=== PATIENT | female | born 1985 | race Caucasian/White ===

== ENCOUNTER 2016-09-03 13:36 | Emergency (ER) | payer OTHER ==
[2016-09-03 13:52] VITALS: BP 120/76; PULSE 79; TEMP 98.1; BMI 20.3
--- NOTE | 2016-09-03 13:52 | PDOC ---
Rapid Medical Evaluation Time Seen by Provider: 09/03/16 13:43 Medical Evaluation: Allergies Allergy/AdvReac Type Severity Reaction Status Date / Time No Known Allergies Allergy Verified 12/18/15 11:56 09/03/16 13:45 I have performed a brief in-person evaluation of this patient. The patient presents with a chief complaint of: left sided chest pain radiating to left arm x 1 month, denies neck pain. Pertinent physical exam findings: normal ekg, no reproducible chest pain, + marijuana, no travel, no cough, fever, I have ordered the following: ekg, cardiac profile, cbc, comp, hcg urine The patient will proceed to the ED for further evaluation.
[2016-09-03 14:21] LABS: BASOPHIL 0.3 % (0-2.0); EOSINOPHIL 0.2 % (0-4.5); MCH 30.7 pg (25.7-33.7); MCHC 34.9 g/dl (32.0-36.0); MEAN CELL VOLUME 87.9 fl (80-96); MEAN PLT VOLUME 7.4 fl (7.5-11.1); NEUTROPHILS 85.1 % (42.8-82.8); PLATELET COUNT 249 K/MM3 (134-434); RDW 12.9 % (11.6-15.6); WHITE BLOOD COUNT 10.7 K/mm3 (4.0-10.0)
--- NOTE | 2016-09-03 14:23 | PDOC ---
History of Present Illness - General History Source: Patient Exam Limitations: No Limitations - History of Present Illness Initial Comments: 09/03/16 15:05 The patient 31 year old female, with a significant past medical history of anxiety, who presents to the emergency department complaining of chest pain for approximately 2 months. The patient reports she has been evaluated in the ED and by a Ctrs(Dr. Long) in the past for a similar chest pain, however, her chest pain has been increasingly worsening. The patient reports her chest pain is localized to her left side and radiates down her left arm. The patient reports associated nausea, but denies vomiting, diarrhea, or constipation. The patient reports she there are days where she has been unable to sleep due to the chest pain. The patient denies any shortness of breath, diaphoresis, or palpitations. She reports intermittent an intermittent headache , but denies fever, chills, cough, dizziness, or lightheadedness. The patient reports she is constantly stressed, because she works two jobs throughout the day. However, she reports she has enough time to sleep at least 9 hours per day. The patient denies any recent travel or sick contacts. Allergies: None reported. Past Surgical History: None reported. Social History: Non-smoker. ETOH and marijuana use. PCP: Dr. Moise <Augie Llamas - Last Filed: 09/03/16 16:20> <Melly Salgado - Last Filed: 09/04/16 08:57> - General Chief Complaint: Chest Pain Stated Complaint: CHEST PAIN,LT SIDE PAIN Time Seen by Provider: 09/03/16 13:43 Past History <Augie Llamas - Last Filed: 09/03/16 16:20> - Past Medical History Asthma: No Diabetes: No Suicide Attempt (Hx): No - Immunization History Immunization Up to Date: Yes - Psycho/Social/Smoking Cessation Hx Anxiety: Yes Suicidal Ideation: No Smoking Status: No Smoking History: Never smoked Have you smoked in the past 12 months: No Number of Cigarettes Smoked Daily: 0 Hx Alcohol Use: No Drug/Substance Use Hx: Yes ([facility]) Substance Use Type: Alcohol <Melly Salgado - Last Filed: 09/04/16 08:57> - Past Medical History Allergies/Adverse Reactions: Allergies Allergy/AdvReac Type Severity Reaction Status Date / Time No Known Allergies Allergy Verified 09/03/16 13:48 Home Medications: Ambulatory Orders NK [No Known Home Medication] 12/18/15 Review of Systems - Review of Systems Able to Perform ROS?: Yes Comments:: 09/03/16 15:07 GENERAL/CONSTITUTIONAL: No fever or chills. No weakness. HEAD, EYES, EARS, NOSE AND THROAT: No change in vision. No ear pain or discharge. No sore throat. CARDIOVASCULAR: +Chest pain. No shortness of breath. RESPIRATORY: No cough, wheezing, or hemoptysis. GASTROINTESTINAL: +Nausea. No vomiting, diarrhea or constipation. GENITOURINARY: No dysuria, frequency, or change in urination. MUSCULOSKELETAL: No joint or muscle swelling or pain. No neck or back pain. SKIN: No rash NEUROLOGIC: No headache, vertigo, loss of consciousness, or change in strength/ sensation. ENDOCRINE: No increased thirst. No abnormal weight change. HEMATOLOGIC/LYMPHATIC: No anemia, easy bleeding, or history of blood clots. ALLERGIC/IMMUNOLOGIC: No hives or skin allergy. <Augie Llamas - Last Filed: 09/03/16 16:20> *Physical Exam - Vital Signs Last Vital Signs Temp Pulse Resp BP Pulse Ox 98.1 F 79 18 120/76 100 09/03/16 13:49 09/03/16 13:49 09/03/16 13:49 09/03/16 13:49 09/03/16 14:10 - Physical Exam Comments: 09/03/16 15:07 GENERAL: Awake, alert, and fully oriented, in no acute distress HEAD: No signs of trauma EYES: PERRLA, EOMI, sclera anicteric, conjunctiva clear ENT: Auricles normal inspection, hearing grossly normal, nares patent, oropharynx clear without exudates. Moist mucosa NECK: Normal ROM, supple, no lymphadenopathy, JVD, or masses LUNGS: Breath sounds equal, clear to auscultation bilaterally. No wheezes, and no crackles HEART: Regular rate and rhythm, normal S1 and S2, no murmurs, rubs or gallops ABDOMEN: Soft, nontender, normoactive bowel sounds. No guarding, no rebound. No masses EXTREMITIES: Normal range of motion, no edema. No clubbing or cyanosis. No cords, erythema, or tenderness NEUROLOGICAL: Cranial nerves II through XII grossly intact. Normal speech, normal gait SKIN: Warm, Dry, normal turgor, no rashes or lesions noted. <Augie Llamas - Last Filed: 09/03/16 16:20> - Vital Signs Last Vital Signs Temp Pulse Resp BP Pulse Ox 98.1 F 79 18 120/76 100 09/03/16 13:49 09/03/16 13:49 09/03/16 13:49 09/03/16 13:49 09/03/16 14:10 <Melly Salgado - Last Filed: 09/04/16 08:57> ED Treatment Course - LABORATORY CBC & Chemistry Diagram: 09/03/16 14:10 09/03/16 14:10 - ADDITIONAL ORDERS Additional order review: Laboratory Results 09/03/16 14:10 Urine HCG, Qual Negative 09/03/16 14:10 RBC 4.47 MCV 87.9 MCHC 34.9 RDW 12.9 MPV 7.4 L Neutrophils % 85.1 H D Lymphocytes % 11.2 D Monocytes % 3.2 L Eosinophils % 0.2 Basophils % 0.3 - RADIOLOGY Radiograph Interpretation: 09/03/16 16:21 EXAM: CXR INTERPRETED BY: Dr. Munoz REVIEWED BY: Dr. Salgado IMPRESSION: No acute pathology. No significant change since 06/09/2014. <Augie Llamas - Last Filed: 09/03/16 16:20> - LABORATORY CBC & Chemistry Diagram: 09/03/16 14:10 09/03/16 14:10 <Melly Salgado - Last Filed: 09/04/16 08:57> Medical Decision Making - Medical Decision Making Lengthy discussion with patient at bedside- she has had multiple episodes of the chest pain over the past two years. She states that she is concerned that she is having a heart attack, and that she has seen on TV that women have atypical presentations (nausea, arm pain). She is low risk by clinical eval, and her EKG and labs are wnl. She has seen a [facility] in the past, but was not pleased with the evaluation- felt it was incomplete. I discussed that there are many things that can cause chest pain, and that an MN is not the only possibility, but must be considered in light of pretest probability. She has seen a GI in the past, had endoscopy and colonoscopy, which were reportedly normal. She was also displeased when her primary recommended that she see a psychiatrist. I asked her about stress, and she stated that she has high stress level, working multiple jobs. However, she does get full nights of sleep. I encouraged her to f/u with cardio, again, because there are other causes for chest pain. I supplied her with a list of providers, as she requested to see a different one. <Melly Salgado - Last Filed: 09/04/16 08:57> *DC/Admit/Observation/Transfer - Attestations Scribe Attestion: 09/03/16 15:07 Documentation prepared by Augie Llamas, acting as biomedical engineering supervisor for Melly Salgado MD. <Augie Llamas - Last Filed: 09/03/16 16:20> - Discharge Dispostion Admit: No <Melly Salgado - Last Filed: 09/04/16 08:57> Diagnosis at time of Disposition: Chest pain Qualifiers: Chest pain type: unspecified Qualified Code(s): R07.9 - Chest pain, unspecified - Discharge Dispostion Disposition: HOME Condition at time of disposition: Stable - Referrals Referrals: Umu Moise MD [Primary Care Provider] - - Patient Instructions Printed Discharge Instructions: DI for Atypical Chest Pain
[2016-09-03 14:49] LABS: ALBUMIN 4.2 g/dl (3.4-5.0); ANION GAP 8 (8-16); BILIRUBIN,TOTAL 0.6 mg/dL (0.2-1.0); CALCIUM 9.3 mg/dL (8.5-10.1); CO2 28 mmol/L (21-32); CREATININE 0.7 mg/dL (0.55-1.02); GLUCOSE,RANDOM 84 mg/dL (74-106); SGOT/AST 10 U/L (15-37); SGPT/ALT 14 U/L (12-78); TOT PROT 7.1 g/dl (6.4-8.2)
[2016-09-03 14:52] LABS: ALK PHOS 63 U/L (45-117); TROPONIN I < 0.02 ng/ml (0.00-0.05)
--- NOTE | 2016-09-06 11:24 | EKG ---
Test Reason : Blood Pressure : / mmHG Vent. Rate : 068 BPM Atrial Rate : 068 BPM P-R Int : 142 ms QRS Dur : 076 ms QT Int : 402 ms P-R-T Axes : 046 053 020 degrees QTc Int : 427 ms NORMAL SINUS RHYTHM WITH SINUS ARRHYTHMIA SEPTAL INFARCT , AGE UNDETERMINED ABNORMAL ECG WHEN COMPARED WITH ECG OF 09-JUN-2014 14:58, ABERRANT CONDUCTION IS NO LONGER PRESENT Confirmed by INDIRA COON MD ([id number]) on 09/06/2016 11:23:59 AM Referred By: Confirmed By:INDIRA COON MD
== END 2016-09-03 16:26 | disposition home or self-care (01) ==
LOC: JER 13:36
DX: R07.9 Chest pain, unspecified (principal)
CPT/HCPCS: 36415; 71020-TC; 80053; 82550; 84484; 84703; 85025; 93005; 93010; 99284-25

== ENCOUNTER 2017-03-18 12:49 | Emergency (ER) | payer OTHER ==
[2017-03-18 12:57] VITALS: BP 109/66; PULSE 79; TEMP 98.8; BMI 19.3
--- NOTE | 2017-03-18 13:53 | PDOC ---
History of Present Illness - General Chief Complaint: Head/Neck problem Stated Complaint: MIGRAINES, STIFF NECK Time Seen by Provider: 03/18/17 13:24 History Source: Patient Exam Limitations: No Limitations - History of Present Illness Initial Comments: 03/18/17 13:50 31 yr female with c/o stiff neck and headache for one week after sleeping on poor mattress. Pt states the pain is worse when waking up comes and goes. no fever or chills. Pt c/o headache that is not going away with tylenol. Pt denies nvd. Severity: mild Past History - Past Medical History Allergies/Adverse Reactions: Allergies Allergy/AdvReac Type Severity Reaction Status Date / Time No Known Allergies Allergy Verified 03/18/17 12:54 Home Medications: Ambulatory Orders Diazepam [Valium] 5 mg PO Q8H PRN #12 tablet MDD 15mg 03/18/17 Naproxen [Naprosyn -] 500 mg PO BID PRN #14 tablet 03/18/17 Asthma: No Diabetes: No Suicide Attempt (Hx): No Other medical history: DENIES. - Immunization History Immunization Up to Date: Yes - Psycho/Social/Smoking Cessation Hx Anxiety: Yes Suicidal Ideation: No Smoking Status: No Smoking History: Never smoked Have you smoked in the past 12 months: No Number of Cigarettes Smoked Daily: 0 Hx Alcohol Use: No Drug/Substance Use Hx: Yes ([facility]) Substance Use Type: Alcohol Review of Systems - Review of Systems Able to Perform ROS?: Yes Is the patient limited Tuvaluan proficient: No Constitutional: No: Symptoms Reported HEENTM: No: Symptoms Reported Respiratory: No: Symptoms reported Cardiac (ROS): No: Symptoms Reported ABD/GI: No: Symptoms Reported : No: Symptoms Reported Musculoskeletal: Yes: See HPI, Neck Pain Neurological: Yes: Symptoms reported, Headache *Physical Exam - Vital Signs Last Vital Signs Temp Pulse Resp BP Pulse Ox 98.8 F 79 19 109/66 99 03/18/17 12:54 03/18/17 12:54 03/18/17 12:54 03/18/17 12:54 03/18/17 12:54 - Physical Exam General Appearance: Yes: Nourished, Appropriately Dressed HEENT: positive: EOMI, KIM Neck: positive: Supple, Decreased range of motion, Tender lateral (right side ) . negative: Tender, Tender midline Respiratory/Chest: positive: Lungs Clear, Normal Breath Sounds Cardiovascular: positive: Regular Rhythm, Regular Rate Gastrointestinal/Abdominal: positive: Normal Bowel Sounds, Soft Musculoskeletal: positive: Normal Inspection Extremity: positive: Normal Capillary Refill, Normal Inspection, Normal Range of Motion Integumentary: positive: Normal Color, Dry, Warm Neurologic: positive: Fully Oriented, Alert, Normal Mood/Affect, Normal Response , Motor Strength 5/5, Finger to Nose (intact). negative: Numbness, Sensory Deficit Medical Decision Making - Medical Decision Making 03/18/17 13:52 cc: headache, right side neck pain and stiffness for 4 days worse after sleeping. Pt admits to sleeping poorly, tossing and turning. pt denies fever or chills no trauma. will r/o toradol and valium head ct as pt states her headaches are more frequent and severe on the right side. no photphobia *DC/Admit/Observation/Transfer Diagnosis at time of Disposition: Neck muscle strain Qualifiers: Encounter type: initial encounter Qualified Code(s): S16.1XXA - Strain of muscle, fascia and tendon at neck level, initial encounter Headache Qualifiers: Headache type: unspecified Headache chronicity pattern: unspecified pattern Intractability: not intractable Qualified Code(s): R51 - Headache - Discharge Dispostion Disposition: HOME Condition at time of disposition: Improved - Prescriptions Prescriptions: Naproxen [Naprosyn -] 500 mg PO BID PRN #14 tablet PRN Reason: Pain Diazepam [Valium] 5 mg PO Q8H PRN #12 tablet MDD 15mg PRN Reason: Muscle Spasms - Referrals Referrals: Umu Moise MD [Primary Care Provider] - Snethil Varner MD [Staff Physician] - - Patient Instructions Additional Instructions: please follow with for follow up please take valium as needed for muscle spasm take naprosyn for pain with the valium as needed for the next 3-4 days follow with the orthopedist if symptoms worsen warm compresses, heating pad to the right side of your neck every 3-4hrs for 20 minutes
[2017-03-18] MEDS ORDERED: KETOROLAC TROMETHAMINE 60 MG/2 ML VIAL IM ONE (14:09)
[2017-03-18] MEDS ORDERED: KETOROLAC TROMETHAMINE 60 MG/2 ML VIAL ONE (14:13)
== END 2017-03-18 15:56 | disposition home or self-care (01) ==
LOC: JERFT 12:49
PROC: 3E0233Z Introduction of Anti-inflammatory into Muscle, Percutaneous Approach (ICD-10-PCS; principal; 2017-03-18)
DX: S16.1XXA Strain of muscle, fascia and tendon at neck level, initial encounter (principal); X50.1XXA Overexertion from prolonged static or awkward postures, initial encounter; Y93.89 Activity, other specified; Y92.032 Bedroom in apartment as the place of occurrence of the external cause
CPT/HCPCS: 70450-TC; 84703; 96372; 99281-25

== ENCOUNTER 2018-07-15 12:21 | Emergency (ER) | payer OTHER ==
[2018-07-15 12:25] VITALS: BP 115/70; PULSE 68; TEMP 98.5; BMI 22.1
[2018-07-15] MEDS ORDERED: KETOROLAC TROMETHAMINE 30 MG/1 ML VIAL IM ONE (14:10)
[2018-07-15] MEDS ORDERED: KETOROLAC TROMETHAMINE 30 MG/1 ML VIAL ONE (14:12)
--- NOTE | 2018-07-15 14:13 | PDOC ---
History of Present Illness - General Chief Complaint: Pain, Acute Stated Complaint: LT LEG PAIN Time Seen by Provider: 07/15/18 13:00 History Source: Patient Exam Limitations: No Limitations - History of Present Illness Initial Comments: 07/15/18 14:13 Patient reports left lower leg pain x 2 years, with no medical history, had one . Reports no past or recent injuries. STates no numbness or tingling, but states pain worse when she is standing for long periods of time. Seen last 2 years ago, had " vein test" done with no results. Requesting pain relief today Severity: Yes: mild Lower Extremity Pain Location: left: leg Method of Injury: Yes: unknown Modifying Factors: improves with: immobilization Lower Ext. Injury Location - Specific Injury Location Hips: bilateral hip: no evidence of injury Legs: left: pain Knees: bilateral no evidence of injury Ankle: bilateral no evidence of injury Foot: bilateral foot no evidence of injury Extremity Pain Location - Extremity Pain Location Extremity Pain Locations: left: leg Past History - Past Medical History Allergies/Adverse Reactions: Allergies Allergy/AdvReac Type Severity Reaction Status Date / Time No Known Allergies Allergy Verified 07/15/18 12:22 Home Medications: Ambulatory Orders Naproxen 500 mg PO BID #20 tablet 07/15/18 Asthma: No COPD: No Diabetes: No - Immunization History Immunization Up to Date: Yes - Suicide/Smoking/Psychosocial Hx Smoking Status: No Smoking History: Never smoked Have you smoked in the past 12 months: No Number of Cigarettes Smoked Daily: 0 Information on smoking cessation initiated: No Hx Alcohol Use: No Drug/Substance Use Hx: No Substance Use Type: Alcohol Review of Systems - Review of Systems Able to Perform ROS?: Yes Constitutional: No: Chills, Fever HEENTM: No: Throat Pain, Throat Swelling, Difficulty Swallowing Respiratory: No: Cough, Orthopnea, Wheezing Cardiac (ROS): No: Chest Pain, Lightheadedness ABD/GI: No: Poor Appetite, Indigestion Musculoskeletal: Yes: Joint Pain Integumentary: No: Bruising, Erythema Neurological: No: Numbness, Tremors Endocrine: No: Excessive Sweating, Increased Hunger Hematologic/Lymphatic: No: Anemia *Physical Exam - Vital Signs Last Vital Signs Temp Pulse Resp BP Pulse Ox 98.5 F 68 16 115/70 98 07/15/18 12:23 07/15/18 12:23 07/15/18 12:23 07/15/18 12:23 07/15/18 12:23 - Physical Exam General Appearance: Yes: Nourished, Appropriately Dressed HEENT: positive: KIM Neck: negative: Carotid bruit, Lymphadenopathy (R), Lymphadenopathy (L) Respiratory/Chest: positive: Lungs Clear. negative: Rapid RR, Paradoxal Breathing Cardiovascular: positive: Regular Rate Extremity: positive: Normal Capillary Refill, Normal Range of Motion. negative : Swelling, Inflammation Neurologic: positive: Fully Oriented, Alert, Normal Response, Motor Strength 5/5 Moderate Sedation - Procedure Monitoring Vital Signs: Procedure Monitoring Vital Signs Temperature 98.5 F 07/15/18 12:23 Pulse Rate 68 07/15/18 12:23 Respiratory Rate 16 07/15/18 12:23 Blood Pressure 115/70 07/15/18 12:23 O2 Sat by Pulse Oximetry (%) 98 07/15/18 12:23 ED Treatment Course - ADDITIONAL ORDERS Additional order review: Laboratory Results 07/15/18 13:25 Urine HCG, Qual Negative - RADIOLOGY Radiology Studies Ordered: Category Date Time Status LEG TIB/FIB-LEFT [RAD] Stat Radiology 07/15/18 13:17 Ordered Medical Decision Making - Medical Decision Making 07/15/18 14:13 33 year old female with history of x 1, no medical history presents with left lower leg pain x 2 years. States pain worse at times. Denies numbness or tingling. Taking acetaminophen for pain relief Plan xray analgesia 07/15/18 14:16 07/15/18 14:56 left leg negative for fracture, dislocation or inflammation *DC/Admit/Observation/Transfer Diagnosis at time of Disposition: Leg pain, left - Discharge Dispostion Disposition: HOME Condition at time of disposition: Good Decision to Admit order: No - Prescriptions Prescriptions: Naproxen 500 mg PO BID #20 tablet - Referrals - Patient Instructions Printed Discharge Instructions: DI for Leg Pain Additional Instructions: Please call orthopedic for follow up or follow up with primary physician for further testing Please return for swelling, redness or worsening of left leg pain Also return for shortness of breath - Post Discharge Activity Forms/Work/School Notes: Back to Work
== END 2018-07-15 15:01 | disposition home or self-care (01) ==
LOC: JERFT 12:21
PROC: 3E0233Z Introduction of Anti-inflammatory into Muscle, Percutaneous Approach (ICD-10-PCS; principal; 2018-07-15)
DX: M79.662 Pain in left lower leg (principal)
CPT/HCPCS: 73590-TC-LT-FY; 84703; 96372; 99281-25

== ENCOUNTER 2021-03-04 13:35 | Emergency (ER) | payer OTHER ==
[2021-03-04 13:57] VITALS: BP 122/75; PULSE 65; TEMP 98.7; BMI 23.8
[2021-03-04] MEDS ORDERED: METOCLOPRAMIDE HCL INJECTION 10 MG/2 ML VIAL IVPB ONE (15:26)
[2021-03-04] MEDS ORDERED: KETOROLAC TROMETHAMINE 30 MG/1 ML VIAL IVPUSH ONE (15:26)
[2021-03-04] MEDS ORDERED: KETOROLAC TROMETHAMINE 30 MG/1 ML VIAL ONE (15:59)
[2021-03-04] MEDS ORDERED: METOCLOPRAMIDE HCL INJECTION 10 MG/2 ML VIAL ONE (15:59)
== END 2021-03-04 18:20 | disposition home or self-care (01) ==
LOC: JER 13:35
PROC: 3E0333Z Introduction of Anti-inflammatory into Peripheral Vein, Percutaneous Approach (ICD-10-PCS; principal; 2021-03-04)
PROC: 3E033GC Introduction of Other Therapeutic Substance into Peripheral Vein, Percutaneous Approach (ICD-10-PCS; 2021-03-04)
DX: R51.9 Headache, unspecified (principal)
CPT/HCPCS: 70450-TC; 84703; 99284-25

== ENCOUNTER 2023-11-18 12:25 | Emergency (ER) | payer OTHER ==
[2023-11-18 12:52] VITALS: BP 104/66; PULSE 66; RESP 18; TEMP 98.4; BMI 23.0
[2023-11-18] MEDS ORDERED: MAGNESIUM SULFATE IN WATER 2 GM/50 ML IVPB IVPB ONE (13:36)
[2023-11-18] MEDS ORDERED: METOCLOPRAMIDE HCL INJECTION 10 MG/2 ML VIAL ONE (13:36)
[2023-11-18] MEDS ORDERED: ACETAMINOPHEN INJECTION 100 ML IVPB ONE (13:36)
[2023-11-18] MEDS: SODIUM CHLORIDE 1,000 ML IV ONE (14:00)
[2023-11-18] MEDS: MAGNESIUM SULFATE IN WATER 2 GM/50 ML IVPB IVPB ONE (14:00)
[2023-11-18] MEDS: ACETAMINOPHEN 1000 MG/100 ML BAG IVPB ONE (14:00)
[2023-11-18] MEDS: METOCLOPRAMIDE HCL INJECTION 10 MG/2 ML VIAL IVPUSH STA (14:00)
[2023-11-18 14:44] LABS: BASO % 0.4 % (0-2.0); EOS % 0.6 % (0-4.5); HEMATOCRIT 41.3 % (32.4-45.2); HEMOGLOBIN 14.4 GM/dL (10.7-15.3); LYMPH % 14.7 % (8-40); MCH 30.7 pg (25.7-33.7); MEAN CELL VOLUME 87.7 fl (80-96); MONO % 4.9 % (3.8-10.2); NEUT % 79.4 % (42.8-82.8); PLATELET COUNT 298 10^3/uL (134-434); RBC 4.71 M/mm3 (3.60-5.2); RDW 13.1 % (11.6-15.6); WHITE BLOOD COUNT 7.8 K/mm3 (4.0-10.0)
[2023-11-18 14:55] LABS: EPI CELLS >36 /uL (0-25.1); HYALINE CASTS 0 /uL (0-3.1); PH,URINE 5.5 (5.0-8.0); URINE APPEARANCE CLEAR; URINE BACTERIA 443 /uL (0-1359); URINE BILIRUBIN NEGATIVE (NEGATIVE); URINE COLOR YELLOW; URINE GLUCOSE (UA) NEGATIVE (NEGATIVE); URINE KETONE NEGATIVE (NEGATIVE); URINE LEUK ESTERASE NEGATIVE (NEGATIVE); URINE NITRITE NEGATIVE (NEGATIVE); URINE PROTEIN NEGATIVE (NEGATIVE); URINE RBC 32 /uL (0-23.9); URINE UROBILINOGEN 0.2 mg/dL (0.2-1.0); URINE WBC 10 /uL (0-25.8)
[2023-11-18 15:18] LABS: CHLORIDE 103 mmol/L (98-107); POTASSIUM 4.2 mmol/L (3.5-5.1); SODIUM 138 mmol/L (136-145)
[2023-11-18 15:21] LABS: BLOOD UREA NITROGEN 11.8 mg/dL (7-18); CALCIUM 9.7 mg/dL (8.5-10.1)
[2023-11-18 15:22] LABS: ALBUMIN 4.3 g/dl (3.4-5.0); ANION GAP 5 mmol/L (4-13); CO2 30 mmol/L (21-32); GLUCOSE,RANDOM 80 mg/dL (74-106)
[2023-11-18 15:25] LABS: CREATININE 0.8 mg/dL (0.55-1.3); SGOT/AST 14 U/L (15-37); SGPT/ALT 28 U/L (13-61)
[2023-11-18 15:26] LABS: BILIRUBIN,TOTAL 0.6 mg/dL (0.2-1); TOT PROT 7.7 g/dl (6.4-8.2)
[2023-11-18 15:27] LABS: ALK PHOS 87 U/L (45-117)
[2023-11-18] MEDS ORDERED: ACETAMINOPHEN/CAFFEINE/BUTALBITAL 1 TAB ONE (16:28)
[2023-11-18] MEDS: ACETAMINOPHEN/CAFFEINE/BUTALBITAL 1 TAB PO ONE (16:31)
== END 2023-11-18 19:52 | disposition home or self-care (01) ==
LOC: JER 12:25
PROC: 3E033GC Introduction of Other Therapeutic Substance into Peripheral Vein, Percutaneous Approach (ICD-10-PCS; principal; 2023-11-18)
PROC: 3E033GC Introduction of Other Therapeutic Substance into Peripheral Vein, Percutaneous Approach (ICD-10-PCS; 2023-11-18)
PROC: 3E033NZ Introduction of Analgesics, Hypnotics, Sedatives into Peripheral Vein, Percutaneous Approach (ICD-10-PCS; 2023-11-18)
DX: R53.1 Weakness (principal); R53.83 Other fatigue; R51.9 Headache, unspecified; R55 Syncope and collapse
CPT/HCPCS: 0241U-QW; 36415; 71046-TC-FY; 80053; 81003; 82550; 83690; 84443; 84484; 84703; 85025; 93005; 93010; 93971-TC; 99285-25; J0131

== ENCOUNTER 2024-11-29 17:45 | Emergency (ER) | payer OTHER ==
[2024-11-29 17:57] VITALS: BMI 24.7
[2024-11-29] MEDS ORDERED: ACETAMINOPHEN INJECTION 100 ML ONE (19:33)
[2024-11-29] MEDS ORDERED: METOCLOPRAMIDE HCL INJECTION 10 MG/2 ML VIAL ONE (19:33)
[2024-11-29] MEDS: SODIUM CHLORIDE 1,000 ML IV STA (19:46)
[2024-11-29] MEDS: METOCLOPRAMIDE HCL INJECTION 10 MG/2 ML VIAL IVPUSH ONE (19:47)
[2024-11-29] MEDS: ACETAMINOPHEN 1000 MG/100 ML BAG IVPB ONE (19:47)
[2024-11-29 20:09] LABS: ABSOLUTE IMMATURE GRANULOCYTES 0.03 x10^3/uL (0.0-0.031); BASOPHILS # 0.04 x10^3/uL (0.01-0.08); EOSINOPHIL % 0.4 % (0.7-5.8); EOSINOPHILS # 0.03 x10^3/uL (0.04-0.36); HEMATOCRIT 40.8 % (34.1-44.9); HEMOGLOBIN 13.5 g/dL (11.2-15.7); MCHC 33.1 g/dl (32.2-35.5); MEAN CELL VOLUME 86.8 fl (79.4-94.8); MEAN PLT VOLUME 9.6 fl (9.4-12.3); MONOCYTE % 4.7 % (4.7-12.5); PLATELET COUNT 279 x10^3/uL (182-369); RDW 12.2 % (12.1-16.8)
[2024-11-29 20:29] LABS: POTASSIUM 4.1 mmol/L (3.5-5.1)
[2024-11-29 20:32] LABS: ALBUMIN 4.2 g/dl (3.4-5.0); CALCIUM 10.3 mg/dL (8.5-10.1)
[2024-11-29 20:33] LABS: BLOOD UREA NITROGEN 14.1 mg/dL (7-18)
[2024-11-29 20:36] LABS: CREATININE 0.8 mg/dL (0.55-1.3)
[2024-11-29 20:37] LABS: BILIRUBIN,TOTAL 0.4 mg/dL (0.2-1)
[2024-11-29 20:38] LABS: TOT PROT 7.3 g/dl (6.4-8.2)
[2024-11-29 21:24] LABS: HCV DIAGNOSTIC IN-HOUSE W/RFLX NON-REACTIVE (NONREACTIVE); HIV INTERPRETATION NEGATIVE (NEGATIVE)
[2024-11-29 21:30] LABS: EPI CELLS 21 /uL (0-25.1); HCG,QUALITATIVE URINE Negative; HYALINE CASTS 0 /uL (0-3.1); PH,URINE 5.5 (5.0-8.0); URINE APPEARANCE CLEAR; URINE BACTERIA 188 /uL (0-1359); URINE BILIRUBIN NEGATIVE (NEGATIVE); URINE COLOR YELLOW; URINE GLUCOSE (UA) NEGATIVE (NEGATIVE); URINE KETONE NEGATIVE (NEGATIVE); URINE LEUK ESTERASE NEGATIVE (NEGATIVE); URINE NITRITE NEGATIVE (NEGATIVE); URINE PROTEIN NEGATIVE (NEGATIVE); URINE RBC 29 /uL (0-23.9); URINE UROBILINOGEN 0.2 mg/dL (0.2-1.0); URINE WBC 5 /uL (0-25.8)
[2024-11-29 21:47] VITALS: BP 127/66; PULSE 84; RESP 18; TEMP 98.5
== END 2024-11-29 21:47 | disposition home or self-care (01) ==
LOC: JER 17:45
PROC: 3E033NZ Introduction of Analgesics, Hypnotics, Sedatives into Peripheral Vein, Percutaneous Approach (ICD-10-PCS; principal; 2024-11-29)
PROC: 3E033GC Introduction of Other Therapeutic Substance into Peripheral Vein, Percutaneous Approach (ICD-10-PCS; 2024-11-29)
PROC: 3E0337Z Introduction of Electrolytic and Water Balance Substance into Peripheral Vein, Percutaneous Approach (ICD-10-PCS; 2024-11-29)
DX: G44.89 Other headache syndrome (principal); R11.0 Nausea; H53.149 Visual discomfort, unspecified; R35.0 Frequency of micturition
CPT/HCPCS: 0241U-QW; 36415; 80053; 81003; 84484; 84703; 85025; 86803; 87086; 87389; 93005; 93010; 99284-25; J0131

== ENCOUNTER 2024-12-25 11:28 | Emergency (ER) | payer OTHER ==
[2024-12-25 11:46] VITALS: BP 125/75; PULSE 70; RESP 20; TEMP 97.9; BMI 24.7
[2024-12-25] MEDS ORDERED: KETOROLAC TROMETHAMINE 30 MG/1 ML VIAL ONE (13:08)
[2024-12-25] MEDS: KETOROLAC TROMETHAMINE 30 MG/1 ML VIAL IM ONE (13:10)
== END 2024-12-25 13:20 | disposition home or self-care (01) ==
LOC: JERFT 11:28
PROC: 3E0233Z Introduction of Anti-inflammatory into Muscle, Percutaneous Approach (ICD-10-PCS; principal; 2024-12-25)
DX: S29.012A Strain of muscle and tendon of back wall of thorax, initial encounter (principal); X50.0XXA Overexertion from strenuous movement or load, initial encounter
CPT/HCPCS: 71101-TC-RT-FY; 96372; 99284-25